=== PATIENT | male | born 1965 | race African-American/Black ===

== ENCOUNTER 2017-05-06 22:46 | Emergency (ER) | payer MEDICAID, OTHER ==
[2017-05-06] MEDS ORDERED: Cyclobenzaprine TAB* 10 MG PO ONE (23:55)
[2017-05-06] MEDS ORDERED: Ketorolac INJ* 60 MG/2 ML VIAL IM ONE (23:55)
[2017-05-07 00:44] VITALS: BP 145/78
--- NOTE | 2017-05-07 05:50 | ED ---
Melani Palacio Rebecca, scribed for Lulú Acuña MD on 05/06/17 at 2349 . Back Pain - HPI Summary HPI Summary: Pt is a 51 y/o M who presents to ED c/o left lower back pain. Sx have been present for over 6 hours and began while making donuts tonight. Pain radiates into the left buttock and is currently severe, ranked 10/10. Sx aggravated by sitting, alleviated by nothing. Denies any other symptoms. - History of Current Complaint Chief Complaint: EDBackInjuryPain Stated Complaint: LT SIDE PAIN Time Seen by Provider: 05/06/17 23:46 Hx Obtained From: Patient Onset/Duration: Still Present Onset/Duration: Started Hours Ago, Still Present Back Pain Location: Is Discrete @ - Left lower back, Radiates To - Left buttock Severity Currently: Severe Pain Intensity: 10 Pain Scale Used: 0-10 Numeric Aggravating Symptom(s): Other - Sitting Alleviating Symptom(s): Nothing Associated Signs And Symptoms: Positive: Negative - Allergies/Home Medications Allergies/Adverse Reactions: Allergies Allergy/AdvReac Type Severity Reaction Status Date / Time No Known Allergies Allergy Verified 07/02/16 18:46 PMH/Surg Hx/FS Hx/Imm Hx Endocrine/Hematology History: Denies: Hx Anticoagulant Therapy, Hx Diabetes, Hx Thyroid Disease Cardiovascular History: Reports: Hx Hypertension Denies: Hx Congestive Heart Failure, Hx Deep Vein Thrombosis, Hx Myocardial Infarction, Hx Pacemaker/ICD Respiratory History: Denies: Hx Asthma, Hx Chronic Obstructive Pulmonary Disease (COPD), Hx Lung Cancer, Hx Pneumonia, Hx Pulmonary Embolism GI History: Denies: Hx Gall Bladder Disease, Hx Gastrointestinal Bleed, Hx Ulcer, Hx Urosepsis History: Denies: Hx Kidney Stones, Hx Renal Disease Musculoskeletal History: Denies: Hx Scoliosis Neurological History: Denies: Hx Dementia, Hx Headaches, Hx Migraine, Hx Seizures, Hx Transient Ischemic Attacks (TIA), Other Neuro Impairments/Disorders Psychiatric History: Denies: Hx Anxiety, Hx Depression, Hx Schizophrenia, Hx Bipolar Disorder - Surgical History Surgery Procedure, Year, and Place: - 2010 Infectious Disease History: No Infectious Disease History: Reports: 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 TREATED W/ ANTIBIOTICS Denies: Hx Clostridium Difficile, Hx Hepatitis, Hx Human Immunodeficiency Virus (HIV), Hx of Known/Suspected MRSA, Hx Known/Suspected VRE, Hx Known/ Suspected VRSA, History Other Infectious Disease, Traveled Outside the [place] in Last 30 Days - Family History Known Family History: Positive: Hypertension Negative: Diabetes - Social History Alcohol Use: None Substance Use Type: Reports: None Smoking Status (MU): Current Every Day Smoker Type: Cigarettes Amount Used/How Often: 5-6 CIG/DAY Length of Time of Smoking/Using Tobacco: 34 YEARS Have You Smoked in the Last Year: Yes Review of Systems Negative: Fever Positive: Other - Left lower back pain with radiation to the left buttock All Other Systems Reviewed And Are Negative: Yes Physical Exam - Summary Physical Exam Summary: VITAL SIGNS: Reviewed. GENERAL: ~Patient is a well-developed and nourished male who is lying comfortable in the stretcher. Patient is not in any acute respiratory distress. HEAD AND FACE: No signs of trauma. No ecchymosis, hematomas or skull depressions. No sinus tenderness. EYES: PERRLA, EOMI x 2, No injected conjunctiva, no nystagmus. EARS: Hearing grossly intact. Ear canals and tympanic membranes are within normal limits. MOUTH: Oropharynx within normal limits. NECK: Supple, trachea is midline, no adenopathy, no JVD, no carotid bruit, no c- spine tenderness, neck with full ROM. CHEST: Symmetric, no tenderness at palpation LUNGS: Clear to auscultation bilaterally. No wheezing or crackles. CVS: Regular rate and rhythm, S1 and S2 present, no murmurs or gallops appreciated. ABDOMEN: Soft, non-tender. No signs of distention. No rebound no guarding, and no masses palpated. Bowel sounds are normal. EXTREMITIES: FROM in all major joints, no edema, no cyanosis or clubbing. Left lower back tenderness with negative bilateral leg raise. NEURO: Alert and oriented x 3. No acute neurological deficits. Speech is normal and follows commands. SKIN: Dry and warm Triage Information Reviewed: Yes Vital Signs On Initial Exam: Initial Vitals Temp Pulse Resp BP Pulse Ox 98.8 F 75 16 164/90 99 05/06/17 22:49 05/06/17 22:49 05/06/17 22:49 05/06/17 22:49 05/06/17 22:49 Vital Signs Reviewed: Yes Diagnostics - Vital Signs Vital Signs Temp Pulse Resp BP Pulse Ox 05/06/17 22:49 98.8 F 75 16 164/90 99 - Laboratory Lab Statement: Any lab studies that have been ordered have been reviewed, and results considered in the medical decision making process. Re-Evaluation - Re-Evaluation First Eval Re-Evaluation Time: 00:35 Change: Improved Comment: Pt's pain has improved, discussed plan to D/C. He understands and agrees. Back Pain Course/Dx - Course Assessment/Plan: Pt is a 51 y/o M who presents to ED c/o left lower back pain for over 6 hours that began while making donuts tonight. Pain radiates into the left buttock and is currently severe, ranked 10/10. Sx aggravated by sitting. Denies any other symptoms. In the ED course, pt received Flexeril and Toradol which improved sx. Pt will be D/C to home with Dx of back pain with Rx for Flexeril and Motrin. He understands and agrees. Elevated BP noted. - Diagnoses Provider Diagnoses: Back pain Discharge - Discharge Plan Condition: Stable Disposition: HOME Prescriptions: Cyclobenzaprine TAB* [Flexeril 10 MG TAB*] 10 mg PO TID PRN #14 tab MDD 3 PRN Reason: Spasms - Back Ibuprofen TAB* [Motrin TAB* 800 MG] 800 mg PO Q6H PRN #30 tab PRN Reason: Pain Patient Education Materials: Back Pain (ED) Referrals: Arvin Hebert MD [Primary Care Provider] - 3 Days Additional Instructions: RETURN TO EMERGENCY DEPARTMENT FOR ANY NEW OR WORSENING SYMPTOMS The documentation as recorded by the Melani goldberg Rebecca accurately reflects the service I personally performed and the decisions made by , Lulú Acuña MD.
== END 2017-05-07 00:43 | disposition home or self-care (01) ==
LOC: ED 22:46
DX: M54.5 Low back pain (principal); I10 Essential (primary) hypertension; F17.210 Nicotine dependence, cigarettes, uncomplicated
CPT/HCPCS: 96372; 99282; A9270-GY; J1885

== ENCOUNTER 2017-05-19 19:13 | Emergency (ER) | payer OTHER ==
[2017-05-19 19:19] VITALS: BP 149/94
[2017-05-19] MEDS ORDERED: Bupivacaine 0.25% W/EPI* 50 ML VIAL INJ ONE (19:36)
[2017-05-19] MEDS ORDERED: Bupivacaine 0.25% SDV* 30 ML ONE (19:41)
--- NOTE | 2017-05-19 19:50 | ED ---
Back Pain - HPI Summary HPI Summary: 51yo M with a hx of "back problems" presents with flare of his chronic back pain for the last 2-3 days. 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 Pain radiates into the L hip and down leg. He has no real pain at rest. He has tried a lidoderm patch without relief. Pain with certain movements. Hx of getting injections in the buttock area and low back in the past. On unknown antiinflammatory at present. Has taken muscle relaxants in the past and used to do PT. Denies any difficulty with bowel/bladder. Walked in. - History of Current Complaint Chief Complaint: UCBackPain Stated Complaint: BACK AND LEG PAIN Time Seen by Provider: 05/19/17 19:22 Hx Obtained From: Patient Onset/Duration: Gradual Onset Pain Intensity: 9 - Allergies/Home Medications Allergies/Adverse Reactions: Allergies Allergy/AdvReac Type Severity Reaction Status Date / Time No Known Allergies Allergy Verified 05/19/17 19:19 PMH/Surg Hx/FS Hx/Imm Hx Endocrine/Hematology History: Denies: Hx Anticoagulant Therapy, Hx Diabetes, Hx Thyroid Disease Cardiovascular History: Reports: Hx Hypertension Denies: Hx Congestive Heart Failure, Hx Deep Vein Thrombosis, Hx Myocardial Infarction, Hx Pacemaker/ICD Respiratory History: Denies: Hx Asthma, Hx Chronic Obstructive Pulmonary Disease (COPD), Hx Lung Cancer, Hx Pneumonia, Hx Pulmonary Embolism GI History: Denies: Hx Gall Bladder Disease, Hx Gastrointestinal Bleed, Hx Ulcer, Hx Urosepsis History: Denies: Hx Kidney Stones, Hx Renal Disease Musculoskeletal History: Reports: Hx Back Problems - chronic back pain/sciatica Denies: Hx Scoliosis Neurological History: Denies: Hx Dementia, Hx Headaches, Hx Migraine, Hx Seizures, Hx Transient Ischemic Attacks (TIA), Other Neuro Impairments/Disorders Psychiatric History: Denies: Hx Anxiety, Hx Depression, Hx Schizophrenia, Hx Bipolar Disorder - Surgical History Surgery Procedure, Year, and Place: - 2010 Infectious Disease History: No Infectious Disease History: Reports: 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 TREATED W/ ANTIBIOTICS Denies: Hx Clostridium Difficile, Hx Hepatitis, Hx Human Immunodeficiency Virus (HIV), Hx of Known/Suspected MRSA, Hx Known/Suspected VRE, Hx Known/ Suspected VRSA, History Other Infectious Disease, Traveled Outside the [place] in Last 30 Days - Family History Known Family History: Positive: Hypertension Negative: Diabetes - Social History Alcohol Use: None Substance Use Type: Reports: None Smoking Status (MU): Current Every Day Smoker Type: Cigarettes Amount Used/How Often: 7-8 CIG/DAY Length of Time of Smoking/Using Tobacco: 34 YEARS Have You Smoked in the Last Year: Yes Review of Systems Constitutional: Negative Gastrointestinal: Negative Positive: other - denies hesitancy, urgency or incontenence Positive: Other - L sided low back pain, pain down L leg Neurological: Other - denies numbness/weakness. All Other Systems Reviewed And Are Negative: Yes Physical Exam Triage Information Reviewed: Yes Vital Signs On Initial Exam: Initial Vitals Temp Pulse Resp BP Pulse Ox 36.5 C 94 16 149/94 100 05/19/17 19:14 05/19/17 19:14 05/19/17 19:14 05/19/17 19:14 05/19/17 19:14 Vital Signs Reviewed: Yes Appearance: Positive: Well-Appearing - antalgic gait but no pain at rest. Comfortable appearing. Skin: Positive: Warm, Skin Color Reflects Adequate Perfusion, Dry Head/Face: Positive: Normal Head/Face Inspection ENT: Positive: Normal ENT inspection Neck: Positive: Supple, Nontender Respiratory/Lung Sounds: Positive: Clear to Auscultation, Breath Sounds Present Cardiovascular: Positive: RRR Abdomen Description: Positive: Nontender Male Genital Exam: Positive: Other - nl saddle area sensation Musculoskeletal: Positive: Other - TTP over the L sciatic notch and low lumbar musculature. No midlines stepoff or scoliosis Neurological: Positive: Sensory/Motor Intact, Alert, Oriented to Person Place, Time, Other - antalgic gait. 2+ patellar DTRs. neg straight leg raises. Psychiatric: Positive: Normal Procedures - Procedure Summary Procedure Summary: Trigger Point Injection: Re: L low back/leg pain Desc: The low left lumbar musculature and piriformis area were cleaned with alcohol. A total of 20cc of 0.25% bupivicaine was injected in divided aliquots thru the area. It was then massaged into the tissues. Patient had near total pain relief and return of full range of motion and normal gait. Tolerated well. No complications. Diagnostics - Vital Signs Vital Signs Temp Pulse Resp BP Pulse Ox 03/26/18 19:14 36.5 C 94 16 149/94 100 - Laboratory Lab Statement: Any lab studies that have been ordered have been reviewed, and results considered in the medical decision making process. Re-Evaluation - Re-Evaluation First Eval Re-Evaluation Time: 19:56 Change: Improved - Pain gone after injection Back Pain Course/Dx - Course Course Of Treatment: No evidence for cauda/conus syndromes. Neuro intact. Walking. Trigger pt injection resolved sx. Rx for muscle relaxation along with steroid. Cont NSAID. - Diagnoses Differential Diagnosis/HQI/PQRI: Positive: Cauda Equina Syndrome, Herniated Disc , Strain Provider Diagnoses: Piriformis syndrome of left side Discharge - Sign-Out/Discharge Documenting (check all that apply): Discharge - Discharge Plan Condition: Good Disposition: HOME Prescriptions: Cyclobenzaprine TAB* [Flexeril 10 MG TAB*] 10 mg PO BID #14 tab methylPREDNISolone [Medrol] 4 mg PO DAILY #1 tab.ds.pk Patient Education Materials: Piriformis Syndrome (ED) Referrals: Arvin Hebert MD [Primary Care Provider] - Additional Instructions: Call your doctor tomorrow for follow up. Ice, range of motion exercises. See your doctor for Physical therapy or chiropractic referral. Return with difficulty with bowel/bladder, numbness/weakness, worse or other concerns as discussed. - Billing Disposition and Condition Condition: GOOD Disposition: HOME
== END 2017-05-19 20:15 | disposition home or self-care (01) ==
LOC: UCEAST 19:13
DX: G57.02 Lesion of sciatic nerve, left lower limb (principal); F17.210 Nicotine dependence, cigarettes, uncomplicated
CPT/HCPCS: 99212; G0463

== ENCOUNTER 2018-02-26 14:06 | Emergency (ER) | payer OTHER ==
--- NOTE | 2018-02-26 14:10 | UC ---
Skin Complaint HPI - HPI Summary HPI Summary: 52 yo male presents with ?hemorrhoid. He tells me that he has had hemorrhoids in the past and this feels the same, but he is worried that it could be something else like cancer. He has no pain and is having a normal BM each day with no blood. He has been using OTC hemorrhoid cream for 1 day, but wanted to be sure he was treating it correctly. - History of Current Complaint Time Seen by Provider: 02/26/18 14:10 Stated Complaint: PERSONAL Hx Obtained From: Patient Onset/Duration: Gradual Onset Current Severity: None - Allergy/Home Medications Allergies/Adverse Reactions: Allergies Allergy/AdvReac Type Severity Reaction Status Date / Time No Known Allergies Allergy Verified 02/26/18 14:15 Home Medications: Home Medications Amlodipine 2.5 mg tab 2.5 mg PO DAILY 02/26/18 [History Confirmed 02/26/18] PMH/Surg Hx/FS Hx/Imm Hx Cardiovascular History: Hypertension Other History Of: Negative For: HIV, Hepatitis B, Hepatitis C, Anticoagulant Therapy - Surgical History Surgical History: Yes Surgery Procedure, Year, and Place: Neck - 2010 - Family History Known Family History: Positive: Hypertension Negative: Diabetes - Social History Lives: With Family Alcohol Use: None Substance Use Type: None Smoking Status (MU): Current Every Day Smoker Type: Cigarettes Amount Used/How Often: 7-8 CIG/DAY Length of Time of Smoking/Using Tobacco: 34 YEARS Have You Smoked in the Last Year: Yes Review of Systems All Other Systems Reviewed And Are Negative: Yes Constitutional: Positive: Negative Skin: Positive: Other - Hemorrhoid Respiratory: Positive: Negative Cardiovascular: Positive: Negative Gastrointestinal: Positive: Negative Genitourinary: Positive: Negative Neurovascular: Positive: Negative Neurological: Positive: Negative Psychological: Positive: Negative Physical Exam - Summary Physical Exam Summary: GENERAL: NAD. WDWN. No pain distress. SKIN: ~1.0cm external hemorrhoid at the 5 o'clock position. NTTP. No fissure. No erythema. NECK: Supple. Nontender. No lymphadenopathy. CHEST: No accessory muscle use. Breathing comfortably and in no distress. CV: Pulses intact. Cap refill <2seconds NEURO: Alert. PSYCH: Age appropriate behavior. Triage Information Reviewed: Yes Vital Signs: Vital Signs: Temp Pulse Resp BP Pulse Ox 99 F 105 20 125/75 98 02/26/18 14:11 02/26/18 14:11 02/26/18 14:11 02/26/18 14:11 02/26/18 14:11 Vital Signs Reviewed: Yes Course/Dx - Course Course Of Treatment: External hemorrhoid. Advised pt to continue OTC cream and will refer him to general surgery - Diagnoses Provider Diagnosis: External hemorrhoid Discharge - Sign-Out/Discharge Documenting (check all that apply): Patient Departure All imaging exams completed and their final reports reviewed: No Studies - Discharge Plan Condition: Stable Disposition: HOME Patient Education Materials: Hemorrhoids (DC) Referrals: Arvin Hebert MD [Primary Care Provider] - Quan Hunter MD [Medical Doctor] - As Soon As Possible Additional Instructions: If you develop a fever, shortness of breath, chest pain, new or worsening symptoms - please call your PCP or go to the ED. Keep using the [id number] creams. Please call the Surgeon at the number below for further evaluation of your hemorrhoid. - Billing Disposition and Condition Condition: STABLE Disposition: Home
[2018-02-26 14:14] VITALS: BP 125/75
[2018-02-26] MEDS ORDERED: Lidocaine 2% PF * 5 ML VIAL INJ ONE (14:15)
== END 2018-02-26 14:40 | disposition home or self-care (01) ==
LOC: UCEAST 14:06
DX: K64.4 Residual hemorrhoidal skin tags (principal); I10 Essential (primary) hypertension; F17.210 Nicotine dependence, cigarettes, uncomplicated
CPT/HCPCS: 99211; G0463

== ENCOUNTER 2018-06-02 10:42 | Emergency (ER) | payer OTHER ==
[2018-06-02 11:03] VITALS: BP 132/78
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
== END 2018-06-02 13:31 | disposition home or self-care (01) ==
LOC: UCEAST 10:42
DX: M79.642 Pain in left hand (principal); F17.210 Nicotine dependence, cigarettes, uncomplicated
CPT/HCPCS: 99211; G0463

== ENCOUNTER 2018-06-05 09:43 | Day surgery (SDC) | payer OTHER ==
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
[~2018-06-05 09:43] MED LIST: Buffered Lidocaine 1% SYRIN* 1 ML/SYRINGE INTRADERM ONE; Dexamethasone TAB* 4 MG PO ONE; Famotidine IV* 10 MG/ML 2 ML (20 mg) IV ONE; Lactated Ringers 1000 ML Bag* 1,000 ML IV SCH; Lidocaine 1% INJ* 10 MG/ML 30 ML SDV ONE; Naloxone* 0.4 MG/ML 1 ML VIAL IV PRN; Ondansetron TAB* 4 MG PO ONE; PROCHLORPERAZINE INJ 5 MG/ML 2 ML VIAL IV PRN; fentaNYL* 50 MCG/ML 2 ML VIAL (100 MCG VIAL) IV PRN; oxyCODONE/Acetamin 5/325 MG* TAB PO PRN
[2018-06-05] MEDS ORDERED: Ondansetron ODT TAB* 4 MG ONE (09:53)
[2018-06-05] MEDS ORDERED: Dexamethasone TAB* 4 MG ONE (09:54)
[2018-06-05] MEDS ORDERED: Famotidine IV* 10 MG/ML 2 ML (20 mg) ONE (09:54)
[2018-06-05] MEDS ORDERED: KETAMINE HCL* 50 MG/ML 10 ML VIAL ONE (10:36)
[2018-06-05] MEDS ORDERED: Midazolam* 1 MG/ML 5 ML VIAL (5 MG) ONE (10:36)
[2018-06-05] MEDS ORDERED: fentaNYL* 50 MCG/ML 2 ML VIAL (100 MCG VIAL) ONE (10:36)
[2018-06-05] MEDS ORDERED: Propofol* 10 MG/ML 20 ML BTL ONE (10:37)
[2018-06-05] MEDS ORDERED: Lidocaine 2% PF * 5 ML VIAL ONE (10:37)
[2018-06-05] MEDS ORDERED: Ketorolac INJ* 30 MG/ML 1 ML VIAL ONE (11:25)
[2018-06-05 13:00] VITALS: BP 127/86
--- NOTE | 2018-06-05 21:24 | OP ---
CC: Dr. Long OPERATIVE NOTE: DATE OF OPERATION: 06/05/18 DATE OF : 63 SURGEON: Madeleine Long MD. [facility] ATTENDANT: DELFINA Ayala. ANESTHESIA: Local MAC. PRE-OP DIAGNOSIS: Foreign body in left hand. POST-OP DIAGNOSIS: Left hand mass. OPERATIVE PROCEDURE: Removal of left hand mass. ESTIMATED BLOOD LOSS: Zero. TOURNIQUET TIME: About 15 minutes. INDICATION FOR PROCEDURE: Mr. Griffith is a 52-year-old man who has developed a lump in the palm of hi s left hand. He thinks he may have gotten glass in his hand at one point, but he is not certain. Th e lump is painful and he presents for removal. DESCRIPTION OF PROCEDURE: The patient was brought to the operating room, was given a sedation anesth etic and a local infiltration of 10 cc of 1% plain lidocaine in the palm of his left hand. Skin of h is left hand and forearm was prepped and draped in the usual sterile fashion. The hand and forearm w ere exsanguinated and the tourniquet elevated to 250 mmHg. A diagonal incision was made centered ove r the mass. We dissected through the subcutaneous tissue. There was a blood-filled mass, presumably a hemangioma. This was removed and sent for pathology. The wound was irrigated and skin edges were approximated with 4-0 nylon suture. The wound was thoroughly explored for foreign bodies and none w ere found. The skin edges were reapproximated with 4-0 nylon suture and the wound dressed with Xerof orm, 4x4, Webril, and an Xiang wrap. The patient tolerated the procedure well and was brought to the r ecovery room in good condition. [id number]/[facility] #: [id number]
== END 2018-06-05 12:18 | disposition home or self-care (01) ==
LOC: OREAST 09:43
PROVIDERS: ATTEND Orthopaedic Surgery
DX: R22.32 Localized swelling, mass and lump, left upper limb (principal); I10 Essential (primary) hypertension; G47.33 Obstructive sleep apnea (adult) (pediatric); M54.9 Dorsalgia, unspecified; M54.2 Cervicalgia; F10.21 Alcohol dependence, in remission
CPT/HCPCS: 88304; A9270-GY; J1885; J2250; J2704; J3010; J8540

== ENCOUNTER 2018-07-26 20:23 | Emergency (ER) | payer OTHER ==
[2018-07-26 20:37] VITALS: BP 129/80
--- NOTE | 2018-07-26 20:52 | UC ---
Respiratory Complaint HPI - HPI Summary HPI Summary: 3 DAYS OF COUGH, NASAL CONGESTION, CHEST CONGESTION AND SNEEZING. PATIENT STATES HIS LEFT EYE IS SLIGHTLY IRRITATED. HE DOES HAVE A PROSTHESIS IN THE EYE. NO NAUSEA/VOMITING. HAD SUBJECTIVE FEVER INITIALLY BUT THAT HAS SINCE RESOLVED. - History of Current Complaint Chief Complaint: UCRespiratory Stated Complaint: HEAD COLD, WHEEZING Time Seen by Provider: 07/26/18 20:39 Hx Obtained From: Patient Onset/Duration: Gradual Onset, Lasting Days, Still Present Timing: Constant Severity Initially: Moderate Severity Currently: Moderate Pain Intensity: 0 Pain Scale Used: 0-10 Numeric Character: Cough: Nonproductive Aggravating Factors: Nothing Alleviating Factors: Nothing Associated Signs And Symptoms: Positive: Fever, Wheezing, URI, Nasal Congestion - Allergies/Home Medications Allergies/Adverse Reactions: Allergies Allergy/AdvReac Type Severity Reaction Status Date / Time No Known Allergies Allergy Verified 07/26/18 20:36 Home Medications: Home Medications Guaifen/Phenyleph/Acetaminophn [Mucinex Sinus-Max Severe Liq] PRN 07/26/18 [ History] PMH/Surg Hx/FS Hx/Imm Hx Cardiovascular History: Hypertension Other History Of: Negative For: HIV, Hepatitis B, Hepatitis C, Anticoagulant Therapy - Surgical History Surgical History: Yes Surgery Procedure, Year, and Place: Neck - 2010 - Family History Known Family History: Positive: Hypertension Negative: Diabetes - Social History Alcohol Use: None Substance Use Type: None Smoking Status (MU): Current Every Day Smoker Type: Cigarettes Amount Used/How Often: 1/2 PPD Length of Time of Smoking/Using Tobacco: 34 YEARS Have You Smoked in the Last Year: Yes Review of Systems All Other Systems Reviewed And Are Negative: Yes Constitutional: Positive: Fever Eyes: Positive: Other - LEFT EYE PROSTHESIS IRRITATION ENT: Positive: Nasal Discharge Respiratory: Positive: Cough Cardiovascular: Positive: Negative Gastrointestinal: Positive: Negative Physical Exam Triage Information Reviewed: Yes Appearance: Well-Appearing, No Pain Distress, Well-Nourished Vital Signs: Initial Vital Signs Temp 97.9 F 07/26/18 20:31 Pulse 78 07/26/18 20:31 Resp 16 07/26/18 20:31 BP 129/80 07/26/18 20:31 Pulse Ox 99 07/26/18 20:31 Vital Signs Reviewed: Yes Eyes: Positive: Conjunctiva Clear, Other: - LEFT EYE PROSTHESIS WITH APPARENT DEFECT ALONG INFERIOR EDGE. SOCKET UNREMARKABLE. ENT: Positive: Hearing grossly normal, Pharynx normal, Other - LEFT TM NORMAL. RIGHT TM ERYTHEMATOUS Neck: Positive: Supple, Nontender, No Lymphadenopathy Respiratory Exam: Normal Cardiovascular Exam: Normal Abdomen Description: Positive: Soft Musculoskeletal: Positive: No Edema Neurological: Positive: Alert Psychological: Positive: Age Appropriate Behavior Skin: Negative: Rashes Respiratory Course/Dx - Course Course Of Treatment: PATIENT WITH ACUTE URI AND RIGHT OTITIS MEDIA. WILL COVER WITH ANTIBIOTICS. ADVISED HE MAY ALSO HAVE AN ALLERGIC COMPONENT TO HIS SYMPTOMS AND RECOMMENDED HE TAKE AN ANTIHISTAMINE DAILY. I'M ALSO CONCERNED THAT THERE IS AN APPARENT DEFECT ALONG THE INFERIOR EDGE OF HIS LEFT EYE PROSTHESIS. I ENCOURAGED HIM TO FOLLOW-UP WITH HIS EYE DOCTOR IN [place] TOMORROW TO HAVE THIS EVALUATED. THERE IS NO APPARENT INFECTION OR ABRASION TO THE EYE SOCKET. - Differential Dx/Diagnosis Provider Diagnosis: Right otitis media Discharge - Sign-Out/Discharge Documenting (check all that apply): Patient Departure All imaging exams completed and their final reports reviewed: No Studies - Discharge Plan Condition: Stable Disposition: HOME Prescriptions: Amoxicillin PO (*) [Amoxicillin 500 MG CAP*] 1,000 mg PO Q12H #26 cap Loratadine 10 mg PO DAILY PRN #30 tablet PRN Reason: Allergy Symptoms Patient Education Materials: Ear Infection (ED), Upper Respiratory Infection ( ED) Forms: *Work Release Referrals: [facility] [Outside] - If Needed Additional Instructions: TAKE THE ANTIBIOTICS FOR THE FULL COURSE TO COVER FOR YOUR EAR INFECTION. YOUR UPPER RESPIRATORY INFECTION IS LIKELY VIRAL AND SHOULD RESOLVE ON ITS OWN WITH TIME. TAKE AN ANTIHISTAMINE DAILY TO COVER FOR ANY ALLERGIC COMPONENT. FOLLOW- UP IF YOU'RE NOT IMPROVING OVER THE NEXT 1-2 WEEKS. I'M CONCERNED THAT THERE MAY BE A DEFECT IN YOUR EYE PROSTHETIC WHICH MAY BE CAUSING SOME IRRITATION TO THE MUCOUS MEMBRANES OF YOUR EYE SOCKET. FOLLOW-UP WITH YOUR EYE DOCTOR IN [place] TOMORROW. CALL THE NUMBER BELOW FOR ASSISTANCE IN ESTABLISHING WITH A PCP An additional resource available to assist in finding the appropriate physician for your health care needs is the [facility] ([facility]). You may contact them by calling [phone]. - Billing Disposition and Condition Condition: STABLE Disposition: Home
[2018-07-26] MEDS ORDERED: Amoxicillin PO (*) 500 MG CAP PO ONE (21:05)
== END 2018-07-26 21:20 | disposition home or self-care (01) ==
LOC: UCEAST 20:23
DX: H66.91 Otitis media, unspecified, right ear (principal); J06.9 Acute upper respiratory infection, unspecified; T85.398A Other mechanical complication of other ocular prosthetic devices, implants and grafts, initial encounter; F17.210 Nicotine dependence, cigarettes, uncomplicated
CPT/HCPCS: 99212; A9270-GY; G0463

== ENCOUNTER 2018-11-14 12:40 | Emergency (ER) | payer OTHER ==
[2018-11-14 12:54] VITALS: BP 124/77
--- NOTE | 2018-11-14 13:30 | UC ---
Throat Pain/Nasal Phani HPI - HPI Summary HPI Summary: 4 days of nasal drip no fevers or cough-- - History of Current Complaint Chief Complaint: UCRespiratory Stated Complaint: CONGESTED Time Seen by Provider: 11/14/18 13:05 Hx Obtained From: Patient Onset/Duration: Sudden Onset, Lasting Days - 4, Still Present Pain Intensity: 0 Pain Scale Used: 0-10 Numeric Cough: None Associated Signs & Symptoms: Positive: Nasal Discharge Related History: Smoking - Allergies/Home Medications Allergies/Adverse Reactions: Allergies Allergy/AdvReac Type Severity Reaction Status Date / Time No Known Allergies Allergy Verified 11/14/18 12:54 PMH/Surg Hx/FS Hx/Imm Hx Previously Healthy: No Cardiovascular History: Hypertension Other History Of: Negative For: HIV, Hepatitis B, Hepatitis C, Anticoagulant Therapy - Surgical History Surgical History: Yes Surgery Procedure, Year, and Place: - 2010 - Family History Known Family History: Positive: Hypertension Negative: Diabetes - Social History Occupation: Employed Full-time Lives: With Family Alcohol Use: Occasionally Substance Use Type: None Smoking Status (MU): Current Every Day Smoker Type: Cigarettes Amount Used/How Often: 1/2 PPD Length of Time of Smoking/Using Tobacco: 34 YEARS Have You Smoked in the Last Year: Yes Cessation Counseling: Counseled 3+Min - 10 Min Review of Systems All Other Systems Reviewed And Are Negative: Yes Constitutional: Positive: Negative Skin: Positive: Negative Eyes: Positive: Negative ENT: Positive: Nasal Discharge Respiratory: Positive: Negative Cardiovascular: Positive: Negative Gastrointestinal: Positive: Negative Genitourinary: Positive: Negative Motor: Positive: Negative Neurovascular: Positive: Negative Musculoskeletal: Positive: Negative Neurological: Positive: Negative Psychological: Positive: Negative Is Patient Immunocompromised?: No Physical Exam Triage Information Reviewed: Yes Appearance: Well-Appearing, No Pain Distress, Well-Nourished Vital Signs: Initial Vital Signs Temp 98.5 F 11/14/18 12:51 Pulse 76 11/14/18 12:51 Resp 12 11/14/18 12:51 BP 124/77 11/14/18 12:51 Pulse Ox 99 11/14/18 12:51 Vital Signs Reviewed: Yes Eye Exam: Normal Eyes: Positive: Conjunctiva Clear ENT Exam: Normal ENT: Positive: Normal ENT inspection, Hearing grossly normal, Pharynx normal, Nasal congestion, Nasal drainage, TMs normal, Uvula midline. Negative: Tonsillar swelling, Tonsillar exudate, Trismus, Muffled voice, Hoarse voice, Dental tenderness, Sinus tenderness Dental Exam: Normal Neck exam: Normal Neck: Positive: Supple, Nontender, No Lymphadenopathy Respiratory Exam: Normal Respiratory: Positive: Chest non-tender, Lungs clear, Normal breath sounds, No respiratory distress, No accessory muscle use Cardiovascular Exam: Normal Cardiovascular: Positive: RRR, No Murmur, Pulses Normal, Brisk Capillary Refill Musculoskeletal Exam: Normal Musculoskeletal: Positive: Strength Intact, ROM Intact, No Edema Neurological Exam: Normal Neurological: Positive: Alert, Muscle Tone Normal Psychological Exam: Normal Skin Exam: Normal Throat Pain/Nasal Course/Dx - Course Course Of Treatment: smoking cesassation information provided---will treat with flonaseand /or zyrtec , follow with pcp prn - Differential Dx/Diagnosis Provider Diagnosis: Nicotine dependence, Rhinitis Discharge ED - Sign-Out/Discharge Documenting (check all that apply): Patient Departure All imaging exams completed and their final reports reviewed: No Studies - Discharge Plan Condition: Stable Disposition: HOME Prescriptions: Cetirizine* [ZyrTEC 10 MG TAB*] 10 mg PO DAILY #1 tab Fluticasone NASAL SPRAY 50MCG* [Flonase NASAL SPRAY 50MCG*] 2 spray BOTH NARES DAILY #1 btl Nicotine Inhaler* (NF) [Nicotine Inhaler*] 10 mg INH Q2H PRN #1 murali PRN Reason: nicotine craving Patient Education Materials: How to Stop Smoking (ED), Rhinosinusitis (ED) Referrals: Rashmi Oviedo MD [Primary Care Provider] - If Needed - Billing Disposition and Condition Condition: STABLE Disposition: Home
== END 2018-11-14 13:45 | disposition home or self-care (01) ==
LOC: UCEAST 12:40
DX: J31.0 Chronic rhinitis (principal); I10 Essential (primary) hypertension; F17.210 Nicotine dependence, cigarettes, uncomplicated
CPT/HCPCS: 99212; G0463

== ENCOUNTER 2018-11-25 20:15 | Emergency (ER) | payer OTHER ==
[2018-11-25 21:38] LABS: Albumin 4.3 g/dL (3.2-5.2); BUN/Creatinine Ratio 12.2 (8-20); Calcium 9.1 mg/dL (8.6-10.3); EGFR African American 80.5 (>60); EGFR Non-African American 66.5 (>60); Globulin 2.2 g/dL (2-4); Total Bilirubin 0.3 mg/dL (0.2-1.0); Total Protein 6.5 g/dL (6.4-8.9)
[2018-11-25 21:42] LABS: INR 1.03 (0.82-1.09)
[2018-11-25 21:56] LABS: ABS Basophils 0.1 10^3/ul (0-0.2); ABS Eosinophils 0.1 10^3/ul (0-0.6); ABS Lymphocytes 2.7 10^3/ul (1.0-4.8); ABS Monocytes 0.5 10^3/ul (0-0.8); ABS Neutrophils 2.3 10^3/ul (1.5-7.7); Hematocrit 38 % (42-52); Lymphocyte % 47.1 %; Mean Corpuscular HGB Conc 34 g/dL (31-36); Mean Corpuscular Hemoglobin 32 pg (27-31); Mean Corpuscular Volume 94 fL (80-94); Mean Platelet Volume 6.3 fL (7.4-10.4); Platelet Count 264 10^3/uL (150-450); Red Blood Count 4.08 10^6 /uL (4.18-5.48); Red Cell Distribution Width 14 % (10-15); White Blood Count 5.7 10^3/uL (3.5-10.8)
[2018-11-25] MEDS ORDERED: Aspirin 81 mg CHEW TAB* 81 MG TAB.CHEW PO ONE (23:00)
--- NOTE | 2018-11-25 23:18 | ED ---
HPI Chest Pain - HPI Summary HPI Summary: Pt is a 52 y/o M presenting to the ED with a chief complaint of chest pain in the mid-sternal region initially onset a couple of hours ago. He states it is worse with deep breaths and bending forward. 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 Pt denies diaphoresis, LE myalgia, or LE edema. - History of Current Complaint Chief Complaint: EDChestPainROMI Time Seen by Provider: 11/25/18 22:51 Hx Obtained From: Patient Onset/Duration: Started Hours Ago, Still Present Timing: Constant, Lasting Hours Initial Severity: Moderate Current Severity: Severe Pain Intensity: 10 Pain Scale Used: 0-10 Numeric Chest Pain Location: Mid Sternal Chest Pain Radiates: No Character: Sharp/Stabbing Aggravating Factor(s): Movement, Deep Breaths Alleviating Factor(s): Nothing Associated Signs and Symptoms: Positive: Chest Pain. Negative: Diaphoresis, Calf Pain/Swelling - Allergy/Home Medications Allergies/Adverse Reactions: Allergies Allergy/AdvReac Type Severity Reaction Status Date / Time No Known Allergies Allergy Verified 11/25/18 20:26 Home Medications: Home Medications Nicotine Inhaler* (NF) [Nicotine Inhaler*] 10 mg INH Q2H PRN 11/25/18 [History Confirmed 11/25/18] oxyCODONE/Acetamin 5/325 MG* [Percocet 5/325 TAB*] 1 tab PO Q4H PRN 11/25/18 [ History Confirmed 11/25/18] PMH/Surg Hx/FS Hx/Imm Hx Previously Healthy: Yes Endocrine/Hematology History: Denies: Hx Anticoagulant Therapy, Hx Bone Marrow Disease, Hx Diabetes, Hx Sickle Cell Disease, Hx Thyroid Disease, Hx Anemia Cardiovascular History: Reports: Hx Hypertension - on meds Denies: Hx Congestive Heart Failure, Hx Deep Vein Thrombosis, Hx Myocardial Infarction, Hx Pacemaker/ICD Respiratory History: Denies: Hx Asthma, Hx Chronic Obstructive Pulmonary Disease (COPD), Hx Lung Cancer, Hx Pneumonia, Hx Pulmonary Embolism, Hx Sleep Apnea GI History: Denies: Hx Gall Bladder Disease, Hx Gastrointestinal Bleed, Hx Ulcer, Hx Urosepsis History: Denies: Hx Kidney Stones, Hx Renal Disease Musculoskeletal History: Reports: Hx Back Problems - chronic back pain/sciatica Denies: Hx Scoliosis Sensory History: Reports: Hx Contacts or Glasses - glasses Denies: Hx Hearing Aid Opthamlomology History: Reports: Hx Contacts or Glasses - glasses Neurological History: Denies: Hx Dementia, Hx Headaches, Hx Migraine, Hx Seizures, Hx Transient Ischemic Attacks (TIA), Other Neuro Impairments/Disorders Psychiatric History: Denies: Hx Anxiety, Hx Depression, Hx Schizophrenia, Hx Bipolar Disorder - Surgical History Surgery Procedure, Year, and Place: Neck - 2010 Hx Anesthesia Reactions: No Infectious Disease History: No Infectious Disease History: Reports: 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 TREATED W/ ANTIBIOTICS Denies: Hx Clostridium Difficile, Hx Hepatitis, Hx Human Immunodeficiency Virus (HIV), Hx of Known/Suspected MRSA, Hx Known/Suspected VRE, Hx Known/ Suspected VRSA, History Other Infectious Disease, Traveled Outside the [place] in Last 30 Days - Family History Known Family History: Positive: Hypertension, Other - cancer, dementia Negative: Diabetes - Social History Alcohol Use: Occasionally Hx Substance Use: No Substance Use Type: Reports: None Hx Tobacco Use: Yes Smoking Status (MU): Current Every Day Smoker Type: Cigarettes Amount Used/How Often: 1/2 PPD Length of Time of Smoking/Using Tobacco: 34 YEARS Have You Smoked in the Last Year: Yes Review of Systems Negative: Skin Diaphoresis Positive: Chest Pain Negative: Myalgia, Edema All Other Systems Reviewed And Are Negative: Yes Physical Exam - Summary Physical Exam Summary: Constitutional: Well-developed, Well-nourished, Alert. (-) Distressed Skin: Warm, Dry HENT: Normocephalic; Atraumatic Eyes: Conjunctiva normal Neck: Musculoskeletal ROM normal neck. (-) JVD, (-) Stridor, (-) Tracheal deviation Cardio: Rhythm regular, rate normal, Heart sounds normal; Intact distal pulses; Radial pulses are 2+ and symmetric. (-) Murmur Pulmonary/Chest wall: R-sided costal sternal tenderness. Effort normal. (-) Respiratory distress, (-) Wheezes, (-) Rales Abd: Soft, (-) tenderness, (-) Distension, (-) Guarding, (-) Rebound Musculoskeletal: (-) Edema Lymph: (-) Cervical adenopathy Neuro: Alert, Oriented x3 Psych: Mood and affect Normal Triage Information Reviewed: Yes Vital Signs On Initial Exam: Initial Vitals Temp Pulse Resp BP Pulse Ox 97.8 F 72 16 162/82 100 11/25/18 20:15 11/25/18 20:15 11/25/18 20:15 11/25/18 20:15 11/25/18 20:15 Vital Signs Reviewed: Yes Procedures - Sedation Patient Received Moderate/Deep Sedation with Procedure: No Diagnostics - Vital Signs Vital Signs Temp Pulse Resp BP Pulse Ox 11/25/18 22:10 98.7 F 61 16 134/82 100 11/25/18 20:15 97.8 F 72 16 162/82 100 - Laboratory Lab Results: Lab Results 11/25/18 11/25/18 11/25/18 Range/Units 21:13 21:13 21:13 WBC 5.7 (3.5-10.8) 10^3/uL RBC 4.08 L (4.18-5.48) 10^6 /uL Hgb 13.0 L (14.0-18.0) g/dL Hct 38 L (42-52) % MCV 94 (80-94) fL MCH 32 H (27-31) pg MCHC 34 (31-36) g/dL RDW 14 (10-15) % Plt Count 264 (150-450) 10^3/uL MPV 6.3 L (7.4-10.4) fL Neut % (Auto) 41.1 % Lymph % (Auto) 47.1 % Titus % (Auto) 8.8 % Eos % (Auto) 2.0 % Baso % (Auto) 1.0 % Absolute Neuts (auto) 2.3 (1.5-7.7) 10^3/ul Absolute Lymphs (auto) 2.7 (1.0-4.8) 10^3/ul Absolute Monos (auto) 0.5 (0-0.8) 10^3/ul Absolute Eos (auto) 0.1 (0-0.6) 10^3/ul Absolute Basos (auto) 0.1 (0-0.2) 10^3/ul Absolute Nucleated RBC 0.0 10^3/ul Nucleated RBC % 0.0 INR (Anticoag Therapy) 1.03 (0.82-1.09) Sodium 140 (135-145) mmol/L Potassium 4.0 (3.5-5.0) mmol/L Chloride 104 (101-111) mmol/L Carbon Dioxide 32 (22-32) mmol/L Anion Gap 4 (2-11) mmol/L BUN 14 (6-24) mg/dL Creatinine 1.15 (0.67-1.17) mg/dL Est GFR ( Amer) 80.5 (>60) Est GFR (Non-Af Amer) 66.5 (>60) BUN/Creatinine Ratio 12.2 (8-20) Glucose 86 (70-100) mg/dL Calcium 9.1 (8.6-10.3) mg/dL Total Bilirubin 0.30 (0.2-1.0) mg/dL AST 25 (13-39) U/L ALT 25 (7-52) U/L Alkaline Phosphatase 63 (34-104) U/L Troponin I 0.00 (<0.04) ng/mL Total Protein 6.5 (6.4-8.9) g/dL Albumin 4.3 (3.2-5.2) g/dL Globulin 2.2 (2-4) g/dL Albumin/Globulin Ratio 2.0 (1-3) Result Diagrams: 11/25/18 21:13 11/25/18 21:13 Lab Statement: Any lab studies that have been ordered have been reviewed, and results considered in the medical decision making process. - Radiology CXR Radiology Interpretation Completed By: ED Physician Summary of Radiographic Findings: No acute process. Pending official radiology report. - EKG 2019 Cardiac Rate: NL - 73bpm EKG Rhythm: Sinus Rhythm ST Segment: Normal Ectopy: None Summary of EKG Findings: EKG at 2019 shows NSR at 73bpm with no STEMI. Chest Pain Course/Dx - Course Course Of Treatment: Patient is here with right-sided costosternal chest pain. Patient's pain is worse with movement and is reproducible. Patient had serial troponins which are negative. Patient EKG showed not abnormality. Patient has a well score of 0. Patient had negative chest x-ray. Patient was encouraged helped his primary care doctor for possible stress test although his symptoms do not sound cardiac in nature. - Diagnoses Provider Diagnoses: Right-sided chest pain Discharge ED - Sign-Out/Discharge Documenting (check all that apply): Patient Departure - Discharge Plan Condition: Stable Disposition: HOME Patient Education Materials: Chest Pain (ED) Referrals: Oviedo,Rashmi L, MD [Primary Care Provider] - [facility] [Outside] Additional Instructions: Please follow up with your primary care provider within the next 1-3 days. Return to the emergency department with any new or worsening chest pain, trouble breathing, nausea, or excessive sweating. - Billing Disposition and Condition Condition: STABLE Disposition: Home - Attestation Statements Document Initiated by Scribe: Yes Documenting Scribe: Deb Denise Provider For Whom Fred is Documenting (Include Credential): Mack Toure MD. Scribe Attestation: Deb Palacio, scribed for Mack Toure MD. on 11/26/18 at 0459. Scribe Documentation Reviewed: Yes Provider Attestation: The documentation as recorded by the scribe, Deb Denise accurately reflects the service I personally performed and the decisions made by , Mack Toure MD. Status of Scribe Document: Viewed
[2018-11-26 01:14] VITALS: BP 123/74
== END 2018-11-26 01:10 | disposition home or self-care (01) ==
LOC: ED 20:15
DX: R07.9 Chest pain, unspecified (principal); F17.210 Nicotine dependence, cigarettes, uncomplicated; I10 Essential (primary) hypertension; Z79.899 Other long term (current) drug therapy
CPT/HCPCS: 36415; 71046; 80053; 84484; 85025; 85610; 93005; 99283; A9270-GY

== ENCOUNTER 2023-04-17 12:52 | Inpatient (IN) ==
[2023-04-17 13:29] LABS: ABS Lymphocytes 1.7 10^3/uL (1.0-4.8); ABS Monocytes 0.4 10^3/uL (0.0-1.1); Hematocrit 41.1 % (38-53); Hemoglobin 14.1 g/dL (13.2-16.3); Lymphocyte % 41.3 %; Mean Corpuscular Hemoglobin 32.4 pg (27-33); Mean Corpuscular Hgb Conc 34.3 g/dL (31-36); Mean Corpuscular Volume 94.5 fL (80-97); Mean Platelet Volume 6.6 fL (7.5-11.2); Platelet Count 277 10^3/uL (150-450); Red Blood Count 4.35 10^6/uL (4.06-5.63); Red Cell Distribution Width 13.7 % (12-17); White Blood Count 4.2 10^3/uL (3.6-10.2)
[2023-04-17 13:42] LABS: INR 1.01 (0.83-1.13)
[2023-04-17 13:58] LABS: Albumin 4.2 g/dL (3.2-5.2); Albumin/Globulin Ratio 1.9 (1-3); Calcium 8.8 mg/dL (8.6-10.3); Creatinine, Serum 0.89 mg/dL (0.67-1.17); Globulin 2.2 g/dL (2-4); Potassium 3.8 mmol/L (3.5-5.0); Total Bilirubin 0.3 mg/dL (0.2-1.0); Total Protein 6.4 g/dL (6.4-8.9); eGFR CKD-EPI 99.3 (>60)
[2023-04-17 15:29] LABS: High Sensitivity Troponin 1 Hr 232 pg/mL (<20)
[2023-04-17] MEDS: Labetalol IV 5 MG/ML 20 ml VIAL IV PUSH ONE (17:01)
[2023-04-17 17:14] LABS: High Sensitivity Troponin 3 Hr 361 pg/mL (<20)
[2023-04-17] MEDS: Iohexol 350 (CONTRAST) 500 ML MDV IV ONE (18:32)
[2023-04-17] MEDS: Heparin DRIP 25,000 UNITS BAG 25,000 UNITS/250 ML BAG IV SCH (18:49)
[2023-04-17] MEDS: Heparin 5000 UNITS/ML 1 mL VIAL IV SCH (18:50)
[2023-04-17 20:11] LABS: ABS Eosinophils 0.1 10^3/uL (0.0-0.5); ABS Lymphocytes 2.1 10^3/uL (1.0-4.8); ABS Monocytes 0.3 10^3/uL (0.0-1.1); ABS Neutrophils 1.7 10^3/uL (1.5-7.6); ABS Nucleated RBC 0.02 10^3/ul; Eosinophil % 1.6 %; Hematocrit 40.4 % (38-53); Hemoglobin 13.9 g/dL (13.2-16.3); Lymphocyte % 49.7 %; Mean Corpuscular Hemoglobin 32.4 pg (27-33); Mean Corpuscular Hgb Conc 34.3 g/dL (31-36); Mean Corpuscular Volume 94.4 fL (80-97); Mean Platelet Volume 6.7 fL (7.5-11.2); Nucleated Red Blood Cells % 0.4 %/100WBC (0.0-0.8); Platelet Count 272 10^3/uL (150-450); Red Blood Count 4.28 10^6/uL (4.06-5.63); Red Cell Distribution Width 13.9 % (12-17); White Blood Count 4.3 10^3/uL (3.6-10.2)
[2023-04-17 20:20] LABS: INR 1.08 (0.83-1.13)
[2023-04-17 20:44] LABS: HDL Cholesterol 39.8 mg/dL
[2023-04-17 21:09] LABS: Creatinine, Serum 0.81 mg/dL (0.67-1.17); eGFR CKD-EPI 102.2 (>60)
[2023-04-17] MEDS: NS 0.9% 1000 ml BAG 1,000 ML IV SCH (23:08)
[2023-04-18 04:16] LABS: Calcium 8.8 mg/dL (8.6-10.3); Creatinine, Serum 0.96 mg/dL (0.67-1.17); Potassium 3.9 mmol/L (3.5-5.0); eGFR CKD-EPI 91.6 (>60)
[2023-04-18 04:23] LABS: ABS Eosinophils 0.1 10^3/uL (0.0-0.5); ABS Lymphocytes 2.2 10^3/uL (1.0-4.8); ABS Monocytes 0.4 10^3/uL (0.0-1.1); ABS Neutrophils 2.1 10^3/uL (1.5-7.6); Eosinophil % 1.2 %; Hematocrit 39.6 % (38-53); Hemoglobin 13.7 g/dL (13.2-16.3); Lymphocyte % 45.9 %; Mean Corpuscular Hemoglobin 32.4 pg (27-33); Mean Corpuscular Hgb Conc 34.6 g/dL (31-36); Mean Corpuscular Volume 93.6 fL (80-97); Mean Platelet Volume 7.1 fL (7.5-11.2); Nucleated Red Blood Cells % 0.1 %/100WBC (0.0-0.8); Platelet Count 268 10^3/uL (150-450); Red Blood Count 4.23 10^6/uL (4.06-5.63); Red Cell Distribution Width 13.6 % (12-17); White Blood Count 4.8 10^3/uL (3.6-10.2)
[2023-04-18] MEDS ORDERED: Naloxone 0.4 mg VIAL 0.4 mg/ml 1 ml VIAL IV PUSH PRN (10:07)
[2023-04-18] MEDS ORDERED: Flumazenil 0.5 mg/5 ml 0.1 MG/ML 5 ml VIAL IV PRN (10:07)
[2023-04-18] MEDS ORDERED: nitroGLYCERIN DRIP 25,000 MCG/250 ML BTL ONE (10:14)
[2023-04-18] MEDS ORDERED: Iohexol 350 (CONTRAST) 200 ML MDV IV ONE (10:14)
[2023-04-18] MEDS ORDERED: Lidocaine 1% MPF 5 ML VIAL ONE (10:14)
[2023-04-18] MEDS ORDERED: Heparin 2 UNITS/ML 1000 mls 3,000 ML IV ONE (10:14)
[2023-04-18] MEDS ORDERED: niCARdipine 0.1MG/ML IVPREMIX 20 MG/200 ML BAG IV ONE (10:14)
[2023-04-18] MEDS ORDERED: fentaNYL 100 mcg/2 ml 50 MCG/ML VIAL ONE (10:36)
[2023-04-18] MEDS ORDERED: Midazolam 5 mg/5 ml VIAL 1 mg/ml 5 ml VIAL (5 mg) ONE (10:36)
[2023-04-18] MEDS ORDERED: Heparin 1,000 UNIT/ML 10 ml (10,000 UNITS) CATHLAB/DIALYSIS ONE ×2 (10:37→11:27)
[2023-04-18] MEDS ORDERED: Atropine 0.1 MG/ML 10 ml SYR (1 mg) ONE (10:43)
[2023-04-18] MEDS ORDERED: ADENOSINE (DIAGNOSTIC) 3 MG/ML VIAL 90MG/30 ML IVPB ONE (11:11)
[2023-04-18] MEDS ORDERED: Iohexol 350 (CONTRAST) 100 ML PAK IV ONE (11:45)
[2023-04-18] MEDS ORDERED: Prasugrel 10 mg TAB (NF) ONE (12:16)
[2023-04-18] MEDS ORDERED: oxyCODONE/Acetamin 5/325 mg TAB PO PRN (12:39)
[2023-04-18] MEDS: fentaNYL 100 mcg/2 ml 50 MCG/ML VIAL IV SLOW PU ONE (13:00)
[2023-04-18] MEDS: Midazolam 10 mg/10 ml VIAL 1 mg/ml 10 ml VIAL (10 mg) IV SLOW PU ONE (13:00)
[2023-04-18] MEDS: Enoxaparin 40 MG/0.4 ML SYR SUBCUT SCH (17:06)
[2023-04-19 06:08] LABS: ABS Basophils 0.1 10^3/uL (0.0-0.1); ABS Lymphocytes 2.1 10^3/uL (1.0-4.8); ABS Monocytes 0.4 10^3/uL (0.0-1.1); ABS Neutrophils 3.2 10^3/uL (1.5-7.6); ABS Nucleated RBC 0.01 10^3/ul; Eosinophil % 0.8 %; Hematocrit 43.3 % (38-53); Hemoglobin 15.2 g/dL (13.2-16.3); Lymphocyte % 36.2 %; Mean Corpuscular Hemoglobin 32.6 pg (27-33); Mean Corpuscular Volume 92.9 fL (80-97); Mean Platelet Volume 6.7 fL (7.5-11.2); Nucleated Red Blood Cells % 0.2 %/100WBC (0.0-0.8); Platelet Count 293 10^3/uL (150-450); Red Blood Count 4.66 10^6/uL (4.06-5.63); Red Cell Distribution Width 13.5 % (12-17); White Blood Count 5.9 10^3/uL (3.6-10.2)
[2023-04-19 06:45] LABS: Calcium 9.3 mg/dL (8.6-10.3); Creatinine, Serum 0.88 mg/dL (0.67-1.17); Potassium 3.7 mmol/L (3.5-5.0); eGFR CKD-EPI 99.7 (>60)
[2023-04-19] MEDS: Potassium Chlor 20 meq TAB.ER PO ONE (09:57)
[2023-04-19 11:52] VITALS: BP 153/92
== END 2023-04-19 13:30 | disposition home or self-care (01) | DRG 322 ==
LOC: ED 12:52 → EDHOLD 12:52 → MEDTELE 20:05 → ICU 04-18 12:56 → SUATTDRO 04-18 13:07
PROVIDERS: ADMIT Internal Medicine; ATTEND Internal Medicine Critical Care Medicine